=== PATIENT | male | born 1975 | race Caucasian/White ===

== ENCOUNTER → 2020-02-14 | Outpatient (CLI) | payer OTHER ==
[~2020-02-14] MED LIST: BUPR150T28 PO; CELE200C PO; ESCI10TA10 PO; TIZA4CAP PO
[2020-02-14 15:25] LABS: BASOPHILS # (AUTO) 0.06 x10^3/uL (0-0.1); BASOPHILS % (AUTO) 1 % (0-1); EOSINOPHILS # (AUTO) 0.36 x10^3/uL (0-0.4); EOSINOPHILS % (AUTO) 5 % (1-7); LYMPHOCYTES # (AUTO) 2.04 x10^3/uL (1-3.4); LYMPHOCYTES % (AUTO) 31 % (22-44); MD NO; MEAN CORPUSCULAR HEMOGLOBIN 31.2 pg (27.5-34.5); MEAN CORPUSCULAR HGB CONC 33.7 g/dL (33.2-36.2); MEAN CORPUSCULAR VOLUME 92.3 fL (81-97); MONOCYTES # (AUTO) 0.73 x10^3/uL (0.2-0.8); MONOCYTES % (AUTO) 11 % (2-9); NEUTROPHILS # (AUTO) 3.46 x10^3/uL (1.8-6.8); NEUTROPHILS % (AUTO) 52 % (42-75); PLATELET COUNT 289 x10^3/uL (130-400); RED BLOOD COUNT 4.76 x10^6/uL (4.38-5.82)
[2020-02-14 15:37] LABS: ANION GAP 7 mmol/L (5-15); CALCIUM 8.9 mg/dL (8.5-10.1); CHLORIDE 109 mmol/L (98-107); CREATININE 1.15 mg/dL (0.7-1.3)
[2020-02-14 15:38] LABS: MICROSCOPIC NOT IND
[2020-02-14 15:40] LABS: INTERNATIONAL NORMALIZED RATIO 0.98 (0.93-1.1); PROTHROMBIN TIME 10.4 Seconds (9.6-11.5)
== END | disposition home or self-care (01) ==
LOC: STAR 14:19
PROVIDERS: ATTEND Neurological Surgery
DX: Z01.811 Encounter for preprocedural respiratory examination (principal); Z01.818 Encounter for other preprocedural examination; Z01.812 Encounter for preprocedural laboratory examination; M47.12 Other spondylosis with myelopathy, cervical region; M50.122 Cervical disc disorder at C5-C6 level with radiculopathy; R94.31 Abnormal electrocardiogram [ECG] [EKG]; R79.1 Abnormal coagulation profile; R82.90 Unspecified abnormal findings in urine
CPT/HCPCS: 36415; 71046; 80048; 81003; 85025; 85610; 85730; 93005

== ENCOUNTER 2020-02-21 08:55 | Inpatient (IN) | payer OTHER ==
[~2020-02-21] VITALS: Ht 180.3 cm; Wt 119.0 kg
[~2020-02-21 08:55] MED LIST changes: +BACITRACIN 50,000 UNIT ONE; +BUPIVACAINE/PF-EPI 0.5% 1:200K ONE; +METHYLENE BLUE 10 MG/ML 10ML ONE; +THROMBIN 5,000 UNIT VIAL TP ONE
[2020-02-21] MEDS ORDERED: CHLORHEXIDINE 15 ML UDC MM STA (09:30)
[2020-02-21] MEDS ORDERED: LACTATED RINGERS 1,000 ML IV ONE (09:38)
[2020-02-21] MEDS ORDERED: LIDOCAINE-MPF 1%, 2ML INFIL ONE (09:39)
[2020-02-21] MEDS ORDERED: FENTANYL PF 250 MCG/5ML ONE (10:56)
[2020-02-21] MEDS ORDERED: MIDAZOLAM 1 MG/ML, 2ML ONE (10:56)
[2020-02-21] MEDS ORDERED: ROCURONIUM 10MG/ML,5ML ONE (11:42)
[2020-02-21] MEDS ORDERED: LIDOCAINE-MPF 2% ,5ML ONE (11:42)
[2020-02-21] MEDS ORDERED: SUCCINYLCHOLINE 20 MG/ML, 10ML ONE (11:42)
[2020-02-21] MEDS ORDERED: BUPIVACAINE/PF-EPI 0.5% 1:200K INFIL ONE (12:01)
[2020-02-21] MEDS ORDERED: BACITRACIN 50,000 UNIT IRRIG ONE (12:01)
[2020-02-21] MEDS ORDERED: LORazepam 2 MG/ML, 1ML IVPush PRN (12:30)
[2020-02-21] MEDS ORDERED: FENTANYL PF 100 MCG/2ML IV PRN (12:30)
[2020-02-21] MEDS ORDERED: MEPERIDINE/PF 25MG/0.5ML IVPush PRN (12:30)
[2020-02-21] MEDS ORDERED: ACETAMINOPHEN 325 MG TABLET PO PRN ×2 (12:30→13:30)
[2020-02-21] MEDS ORDERED: hydrALAzine 20 MG/ML, 1ML IV PRN (12:30)
[2020-02-21] MEDS ORDERED: OXYcodone 5 MG/5 ML ORAL.SOL UDC PO PRN (12:30)
[2020-02-21] MEDS ORDERED: PROMETHAZINE 25 MG/ML, 1ML IVPush PRN (12:30)
[2020-02-21] MEDS ORDERED: ALBUTEROL SULFATE 2.5 MG/3 ML NPPB PRN (12:30)
[2020-02-21] MEDS ORDERED: DEXAMETHASONE 4 MG/ML, 1ML ONE ×2 (12:50)
[2020-02-21] MEDS ORDERED: ONDANSETRON 2MG/ML, 2ML ONE (12:50)
[2020-02-21] MEDS ORDERED: PROPOFOL 10 MG/ML, 20ML ONE (12:50)
[2020-02-21] MEDS ORDERED: CEFAZOLIN 1,000 MG ONE ×2 (12:50)
[2020-02-21] MEDS ORDERED: OXYcodone 5 MG/5 ML ORAL.SOL UDC ONE (13:16)
[2020-02-21] MEDS ORDERED: ACETAMINOPHEN 650 MG/20.3 ML UDC ONE (13:16)
[2020-02-21] MEDS ORDERED: HYDROmorphone 1 MG/ML, 1ML INJ ONE (13:27)
[2020-02-21] MEDS: HYDROmorphone 1 MG/ML, 1ML INJ IVPush PRN ×2 (13:29→13:36)
[2020-02-21] MEDS ORDERED: OXYcodone/APAP 5/325MG TABLET PO PRN (13:30)
[2020-02-21] MEDS ORDERED: PROMETHAZINE 25 MG/ML, 1ML IM PRN (13:30)
[2020-02-21] MEDS ORDERED: SENNA/DOCUSATE TABLET PO PRN (13:30)
[2020-02-21] MEDS ORDERED: METHOCARBAMOL 750 MG TABLET PO PRN (13:30)
[2020-02-21] MEDS ORDERED: PHARMACY MAY ADJ FOR RENAL FX MC PRN (13:30)
[2020-02-21] MEDS ORDERED: BISACODYL 10 MG SUPP PR PRN (13:30)
[2020-02-21] MEDS ORDERED: METHOCARBAMOL 1,000 MG in DEXTROSE 5% 100 ML IV ONE (13:30)
[2020-02-21] MEDS ORDERED: HYDROmorphone 1 MG/ML, 1ML INJ IVPush PRN (13:30)
[2020-02-21] MEDS ORDERED: DEXAMETHASONE 4 MG/ML, 1ML IVPush SCH (13:30)
[2020-02-21] MEDS ORDERED: DIPHENHYDRAMINE 50 MG/ML, 1ML IVPush PRN (13:30)
[2020-02-21] MEDS ORDERED: MAGNESIUM HYDROXIDE 8%, 30ML UDC PO PRN (13:30)
[2020-02-21] MEDS ORDERED: CEFAZOLIN PMX 1GM/50ML 50 ML IVPB SCH (13:30)
[2020-02-21] MEDS ORDERED: METHOCARBAMOL 1,000 MG in DEXTROSE 5% 100 ML IV PRN (14:00)
[2020-02-21] MEDS ORDERED: LABETALOL 5MG/ML, 20ML IV PRN (14:00)
[2020-02-21] MEDS ORDERED: TIZANIDINE 4MG TABLET PO PRN (15:30)
[2020-02-21] MEDS: D5%-0.9% NACL+KCL 20MEQ 1,000 ML IV SCH (16:29)
[2020-02-21] MEDS: HYDROcodone/APAP 5/325 TABLET PO PRN ×2 (17:27→21:44)
[2020-02-21] MEDS: DEXAMETHASONE 4 MG/ML, 1ML IVPush SCH ×2 (17:27→23:48)
[2020-02-21 19:00] VITALS: BP 141/83
[2020-02-21] MEDS: CEFAZOLIN PMX 1GM/50ML 50 ML IVPB SCH (20:16)
[2020-02-21] MEDS: SODIUM CHLORIDE FLUSH 10ML SYR IVF SCH (20:17)
[2020-02-21] MEDS: BUPROPION SR 150 MG TABLET PO SCH (21:44)
[2020-02-22 01:10] VITALS: BP 109/72
[2020-02-22] MEDS: HYDROcodone/APAP 5/325 TABLET PO PRN ×3 (01:45→10:31)
[2020-02-22] MEDS: D5%-0.9% NACL+KCL 20MEQ 1,000 ML IV SCH ×2 (02:00→12:00)
[2020-02-22 04:04] VITALS: BP 112/71
[2020-02-22] MEDS: CEFAZOLIN PMX 1GM/50ML 50 ML IVPB SCH (04:20)
[2020-02-22] MEDS: DEXAMETHASONE 4 MG/ML, 1ML IVPush SCH ×2 (05:44→12:00)
[2020-02-22 07:32] VITALS: BP 120/74
[2020-02-22] MEDS ORDERED: BUPROPION SR 150 MG TABLET PO SCH (09:00)
[2020-02-22] MEDS ORDERED: ESCITALOPRAM 10MG TABLET PO SCH ×2 (09:00)
[2020-02-22] MEDS: BUPROPION SR 150 MG TABLET PO SCH (09:28)
[2020-02-22] MEDS: SODIUM CHLORIDE FLUSH 10ML SYR IVF SCH (09:28)
[2020-02-22] MEDS ORDERED: HYDR-3240 PO (10:00)
[2020-02-22] MEDS ORDERED: FAMO-79 PO (10:01)
[2020-02-22] MEDS ORDERED: METH4TAB2 PO (10:02)
== END 2020-02-22 12:25 | disposition home or self-care (01) | DRG 473 ==
LOC: ORIP 08:55 → 4NE 14:21 → DCLOUNGE 02-22 12:15
PROVIDERS: ADMIT Neurological Surgery; ATTEND Neurological Surgery
PROC: 0RT30ZZ Resection of Cervical Vertebral Disc, Open Approach (ICD-10-PCS; 2020-02-21)
PROC: 01N10ZZ Release Cervical Nerve, Open Approach (ICD-10-PCS; 2020-02-21)
PROC: 0RG10A0 Fusion of Cervical Vertebral Joint with Interbody Fusion Device, Anterior Approach, Anterior Column, Open Approach (ICD-10-PCS; principal; 2020-02-21 11:30)
DX: M48.02 Spinal stenosis, cervical region (principal); M50.122 Cervical disc disorder at C5-C6 level with radiculopathy; G62.9 Polyneuropathy, unspecified; M47.22 Other spondylosis with radiculopathy, cervical region; Z87.891 Personal history of nicotine dependence; Z72.89 Other problems related to lifestyle
CPT/HCPCS: 36415; 72040; J3490; 87635; C1713; G0378; J0690; J1100; J1170; J2250; J2405; J2704; J3010; C1762; C1889; J0330; J2800; J3480; J7120; Q9968